=== PATIENT | female | born 1975 | race Hispanic/Latino ===

== ENCOUNTER 2020-08-10 14:41 | Outpatient (CLI) | payer OTHER | END 2020-08-10 14:42 | disposition home or self-care (01) | LOC: BICMAMMO 14:41 | PROVIDERS: ATTEND Physician Assistant | DX: Z12.31 Encounter for screening mammogram for malignant neoplasm of breast (principal); Z98.82 Breast implant status | CPT/HCPCS: 77063; 77067 ==

== ENCOUNTER 2021-03-15 15:59 | Emergency (ER) | payer OTHER | END 2021-03-15 17:09 | disposition home or self-care (01) | LOC: ERS 15:59 | DX: I97.620 Postprocedural hemorrhage of a circulatory system organ or structure following other procedure (principal) | CPT/HCPCS: 99283 ==